=== PATIENT | male | born 1965 | race Caucasian/White ===

== ENCOUNTER 2024-06-15 07:55 | Day surgery (SDC) | payer BC ==
[~2024-06-15 07:55] MED LIST: Sodium Chloride 0.9% 10 ML Syringe FLUSH PRN; Sodium Chloride 0.9% 10 ML Syringe FLUSH SCH
[2024-06-15] MEDS: Lactated Ringers 1,000 ML IV SCH (08:20)
[2024-06-15] MEDS ORDERED: fentaNYL 250 MCG/5 ML SDV ONE (09:18)
[2024-06-15] MEDS ORDERED: Midazolam 1 MG/ML 2 ML SDV ONE (09:18)
[2024-06-15] MEDS ORDERED: Dexamethasone 4 MG/ML 5 ML MDV ONE (09:19)
[2024-06-15] MEDS ORDERED: Lidocaine 1% 5 ML VIAL ONE (09:19)
[2024-06-15] MEDS ORDERED: Propofol 200 MG/20 ML SDV ONE (09:19)
[2024-06-15] MEDS ORDERED: dexmedeTOMIDine HCl 200 MCG/2 ML SDV ONE (09:19)
[2024-06-15] MEDS ORDERED: Ondansetron 4 MG/2 ML SDV ONE (09:19)
[2024-06-15] MEDS ORDERED: Famotidine 20 MG/2 ML SDV IVPUSH ONE (10:18)
[2024-06-15] MEDS ORDERED: ceFAZolin 2 GM Vial ONE (10:33)
[2024-06-15] MEDS ORDERED: diphenhydrAMINE 50 MG/ML SDV ONE (10:55)
[2024-06-15] MEDS ORDERED: Ketamine 200 MG/20 ML MDV ONE (10:56)
[2024-06-15] MEDS: Bupivacaine 0.25% 10 ML SDV ONE (11:01)
[2024-06-15] MEDS: EPINEPHrine 1 MG/ML SDV ONE (11:01)
[2024-06-15] MEDS: Ketorolac 30 MG/ML SDV IVPUSH ONE (12:20)
[2024-06-15] MEDS ORDERED: fentaNYL 100 MCG/2 ML SDV IVPUSH PRN (12:20)
[2024-06-15] MEDS: Acetaminophen 325 MG Tab PO ONE (12:20)
[2024-06-15] MEDS ORDERED: Ondansetron 4 MG/2 ML SDV IVPUSH PRN (12:20)
[2024-06-15] MEDS ORDERED: HYDROmorphone 0.5 MG/0.5 ML Syringe IVPUSH PRN (12:20)
[2024-06-15] MEDS: Metoprolol Tartrate 5 MG/5 ML SDV IVPUSH ONE (13:30)
== END 2024-06-15 14:35 | disposition home or self-care (01) ==
LOC: JD.SDS 07:55
PROVIDERS: ATTEND Orthopaedic Surgery
DX: S83.242A Other tear of medial meniscus, current injury, left knee, initial encounter (principal); M94.262 Chondromalacia, left knee; E78.5 Hyperlipidemia, unspecified; N52.9 Male erectile dysfunction, unspecified; Z87.891 Personal history of nicotine dependence; Z79.899 Other long term (current) drug therapy
CPT/HCPCS: 29881; A9270; J0171; J0665; J0690; J1100; J1200; J1885; J2250; J2405; J2704; J3010; J3490; J7120